=== PATIENT | female | born 1935 | race Hispanic/Latino ===

== ENCOUNTER 2021-12-06 11:53 | Inpatient (IN) | payer MEDICARE, OTHER ==
[~2021-12-06] VITALS: Ht 157.5 cm; Wt 57.2 kg
[2021-12-06] MEDS ORDERED: SODIUM CHLORIDE FLUSH 10 ML SYR INJ PRN ×2 (12:30→14:15)
[2021-12-06] MEDS ORDERED: SODIUM CHLORIDE 0.9% 500ML 500 ML IV ONE (12:30)
[2021-12-06 12:48] LABS: BASOPHILS # (AUTO) 0.1 (0.0-0.1); BASOPHILS % 0.8 % (0.0-1.0); EOSINOPHILS # (AUTO) 0.2 (0.0-0.4); EOSINOPHILS % 1.9 % (0.0-6.0); HEMATOCRIT 39.3 % (34.2-44.1); HEMOGLOBIN 12.1 g/dL (12.0-16.0); LYMPHOCYTES # (AUTO) 1.5 (1.0-3.2); LYMPHOCYTES % 19.5 % (18.0-39.1); MEAN CORPUSCULAR HEMOGLOBIN 26.8 pg (28-32); MEAN CORPUSCULAR HGB CONC 30.8 g/dL (31-35); MEAN CORPUSCULAR VOLUME 86.9 fL (81-99); MONOCYTES # (AUTO) 0.6 (0.2-0.8); MONOCYTES % 7.4 % (4.4-11.3); NEUTROPHILS # (AUTO) 5.4 (2.1-6.9); PLATELET COUNT 455 x10e3/uL (140-360); RED BLOOD COUNT 4.52 x10e6/uL (3.6-5.1); RED CELL DISTRIBUTION WIDTH 15.9 % (11.7-14.4)
[2021-12-06 13:06] LABS: CLARITY,URINE CLEAR (CLEAR); COLOR,URINE YELLOW (YELLOW); KETONES,URINE NEGATIVE (NEGATIVE); LEUKOCYTE ESTERASE ,URINE NEGATIVE (NEGATIVE); NITRITE,URINE NEGATIVE (NEGATIVE); PROTEIN,URINE DIPSTICK NEGATIVE (NEGATIVE)
[2021-12-06 13:09] LABS: ALBUMIN 2.3 g/dL (3.5-5.0); ALBUMIN/GLOBULIN RATIO 0.5 (0.8-2.0); ANION GAP 14.8 mmol/L (8-16); CALCIUM 8.6 mg/dL (8.4-10.2); CREATININE, SERUM 0.6 mg/dL (0.57-1.11); POTASSIUM 3.8 mmol/L (3.5-5.1)
[2021-12-06 13:16] LABS: BACTERIA,URINE RARE /HPF; EPITHELIAL CELLS,URINE FEW /LPF; RBC,URINE 0-5 /HPF (0-5); WBC,URINE (MAN) 0-5 /HPF (0-5)
[2021-12-06] MEDS ORDERED: ACETAMINOPHEN 325 MG TAB PO ONE (13:45)
[2021-12-06] MEDS ORDERED: DIGOXIN INJ 0.25 MG/ML 2 ML AMP IV ONE (13:45)
[2021-12-06] MEDS ORDERED: ONDANSETRON HCL INJ 2MG/ML 2ML 2 MG/ML VIAL IV PRN (14:15)
[2021-12-06] MEDS ORDERED: ASPIRIN 81 MG CHEW TAB PO ONE (14:15)
[2021-12-06] MEDS ORDERED: MIRTAZAPINE7.5 MG PO (15:47)
[2021-12-06] MEDS ORDERED: METOPROLOL TART25 MG PO (15:47)
[2021-12-06] MEDS ORDERED: LEVOTHYROXINE50 MCG PO (15:47)
[2021-12-06] MEDS ORDERED: LISINOPRIL5 MG PO (15:47)
[2021-12-06 16:40] LABS: CREATINE KINASE MB 0.8 ng/mL (0-5.0)
[2021-12-06] MEDS ORDERED: LORAZEPAM 0.5 MG TAB PO PRN (18:45)
[2021-12-06 21:00] VITALS: BP 135/90
[2021-12-06] MEDS ORDERED: DEXTROSE 50% SYRINGE 50 ML IV PRN (23:15)
[2021-12-06] MEDS ORDERED: DEXTROSE 5%/0.45% SOD CHL 1,000 ML IV ONE (23:15)
[2021-12-07] VITALS (9 sets, daily range): BP systolic 96–158; BP diastolic 50–98
[2021-12-07] MEDS ORDERED: DEXTROSE 5%/0.45% SOD CHL 1,000 ML IV ONE ×2 (03:57→21:07)
[2021-12-07 04:08] LABS: BASOPHILS # (AUTO) 0.1 (0.0-0.1); BASOPHILS % 0.7 % (0.0-1.0); EOSINOPHILS # (AUTO) 0.2 (0.0-0.4); EOSINOPHILS % 2.9 % (0.0-6.0); HEMATOCRIT 39.7 % (34.2-44.1); HEMOGLOBIN 12.4 g/dL (12.0-16.0); LYMPHOCYTES # (AUTO) 1.4 (1.0-3.2); LYMPHOCYTES % 17.3 % (18.0-39.1); MEAN CORPUSCULAR HEMOGLOBIN 27.3 pg (28-32); MEAN CORPUSCULAR HGB CONC 31.2 g/dL (31-35); MEAN CORPUSCULAR VOLUME 87.3 fL (81-99); MONOCYTES # (AUTO) 0.7 (0.2-0.8); MONOCYTES % 8.5 % (4.4-11.3); NEUTROPHILS # (AUTO) 5.8 (2.1-6.9); NEUTROPHILS % 70.1 % (38.7-80.0); PLATELET COUNT 350 x10e3/uL (140-360); RED BLOOD COUNT 4.55 x10e6/uL (3.6-5.1); RED CELL DISTRIBUTION WIDTH 16.3 % (11.7-14.4)
[2021-12-07 04:30] LABS: CREATINE KINASE MB 1.1 ng/mL (0-5.0)
[2021-12-07 04:45] LABS: ALBUMIN 2.3 g/dL (3.5-5.0); ALBUMIN/GLOBULIN RATIO 0.5 (0.8-2.0); ANION GAP 18.9 mmol/L (8-16); CALCIUM 8.6 mg/dL (8.4-10.2); CREATININE, SERUM 0.57 mg/dL (0.57-1.11)
[2021-12-07 04:47] LABS: POTASSIUM 4.9 mmol/L (3.5-5.1)
[2021-12-07 05:06] LABS: THYROID STIMULATING HORMONE 6.654 uIU/mL (0.350-4.940)
[2021-12-07] MEDS: INSULIN LISPRO 100 UNIT/1 ML 3ML VIAL SQ SCH ×4 (07:30→20:57)
[2021-12-07] MEDS ORDERED: LEVOTHYROXINE SODIUM 50 MCG TAB PO SCH (07:30)
[2021-12-07] MEDS: LISINOPRIL 2.5 MG TAB PO SCH (10:15)
[2021-12-07] MEDS: SENNOSIDES 8.6 MG TAB PO SCH (10:15)
[2021-12-07] MEDS: METOPROLOL TARTRATE 25 MG TAB PO SCH ×2 (10:15→17:45)
[2021-12-07] MEDS: DOCUSATE SODIUM 100 MG CAP PO SCH (10:15)
[2021-12-07] MEDS: MIRTAZAPINE 15 MG TAB PO SCH (10:15)
[2021-12-07 10:57] LABS: FREE T4 (FREE THYROXINE) 1.02 ng/dL (0.8-1.8)
[2021-12-07 16:51] LABS: CREATINE KINASE MB 0.8 ng/mL (0-5.0)
[2021-12-07] MEDS: ENOXAPARIN SOD INJ 40 MG/0.4 ML SYR SC SCH (17:30)
[2021-12-07] MEDS: MEGACE 400MG/ 10ML CUP PO SCH (17:38)
[2021-12-07] MEDS: ACETAMINOPHEN 325 MG TAB PO PRN (20:58)
[2021-12-08] VITALS (8 sets, daily range): BP systolic 91–155; BP diastolic 55–95
[2021-12-08] MEDS ORDERED: SODIUM CHLORIDE 0.9% 250ML 250 ML ONE (00:08)
[2021-12-08] MEDS: ACETAMINOPHEN 325 MG TAB PO PRN ×2 (06:18→12:11)
[2021-12-08] MEDS: LEVOTHYROXINE SODIUM 25 MCG TABLET PO SCH (06:18)
[2021-12-08 07:09] LABS: BASOPHILS % 0.5 % (0.0-1.0); EOSINOPHILS # (AUTO) 0.1 (0.0-0.4); EOSINOPHILS % 1.9 % (0.0-6.0); HEMATOCRIT 38.3 % (34.2-44.1); HEMOGLOBIN 11.6 g/dL (12.0-16.0); LYMPHOCYTES # (AUTO) 1.6 (1.0-3.2); LYMPHOCYTES % 21.4 % (18.0-39.1); MEAN CORPUSCULAR HGB CONC 30.3 g/dL (31-35); MEAN CORPUSCULAR VOLUME 89.1 fL (81-99); MONOCYTES # (AUTO) 0.8 (0.2-0.8); MONOCYTES % 11.3 % (4.4-11.3); NEUTROPHILS # (AUTO) 4.8 (2.1-6.9); NEUTROPHILS % 64.6 % (38.7-80.0); PLATELET COUNT 327 x10e3/uL (140-360); RED CELL DISTRIBUTION WIDTH 16.3 % (11.7-14.4)
[2021-12-08] MEDS ORDERED: SODIUM CHLORIDE 0.9% 250ML 250 ML IV ONE (07:30)
[2021-12-08] MEDS: INSULIN LISPRO 100 UNIT/1 ML 3ML VIAL SQ SCH ×4 (07:30→19:40)
[2021-12-08 08:38] LABS: ALBUMIN 2.1 g/dL (3.5-5.0); ALBUMIN/GLOBULIN RATIO 0.5 (0.8-2.0); ANION GAP 20.7 mmol/L (8-16); CALCIUM 8.2 mg/dL (8.4-10.2); CREATININE, SERUM 0.59 mg/dL (0.57-1.11); MAGNESIUM 1.8 MG/DL (1.3-2.1); POTASSIUM 4.7 mmol/L (3.5-5.1)
[2021-12-08] MEDS: LISINOPRIL 2.5 MG TAB PO SCH (09:00)
[2021-12-08] MEDS: DOCUSATE SODIUM 100 MG CAP PO SCH (09:00)
[2021-12-08] MEDS: MEGACE 400MG/ 10ML CUP PO SCH (09:00)
[2021-12-08] MEDS: MIRTAZAPINE 15 MG TAB PO SCH (09:00)
[2021-12-08] MEDS: SENNOSIDES 8.6 MG TAB PO SCH (09:00)
[2021-12-08] MEDS: METOPROLOL TARTRATE 50 MG TAB PO SCH ×2 (09:00→17:00)
[2021-12-08] MEDS: ASPIRIN 325 MG TAB PO SCH (09:00)
[2021-12-08] MEDS: ENOXAPARIN SOD INJ 40 MG/0.4 ML SYR SC SCH (17:00)
[2021-12-09] VITALS (7 sets, daily range): BP systolic 99–145; BP diastolic 57–88
[2021-12-09] MEDS: LEVOTHYROXINE SODIUM 25 MCG TABLET PO SCH (05:30)
[2021-12-09] MEDS: INSULIN LISPRO 100 UNIT/1 ML 3ML VIAL SQ SCH ×4 (07:30→20:10)
[2021-12-09 08:29] LABS: ALBUMIN/GLOBULIN RATIO 0.5 (0.8-2.0); ANION GAP 16.2 mmol/L (8-16); CALCIUM 8.2 mg/dL (8.4-10.2); CREATININE, SERUM 0.59 mg/dL (0.57-1.11); MAGNESIUM 1.8 MG/DL (1.3-2.1); POTASSIUM 4.2 mmol/L (3.5-5.1)
[2021-12-09] MEDS: MEGACE 400MG/ 10ML CUP PO SCH (08:52)
[2021-12-09] MEDS: ASPIRIN 325 MG TAB PO SCH (08:52)
[2021-12-09] MEDS: DOCUSATE SODIUM 100 MG CAP PO SCH (08:52)
[2021-12-09] MEDS: METOPROLOL TARTRATE 50 MG TAB PO SCH ×2 (08:52→17:00)
[2021-12-09] MEDS: LISINOPRIL 2.5 MG TAB PO SCH (08:52)
[2021-12-09] MEDS: SENNOSIDES 8.6 MG TAB PO SCH (08:53)
[2021-12-09] MEDS: MIRTAZAPINE 15 MG TAB PO SCH (08:53)
[2021-12-09] MEDS: ENOXAPARIN SOD INJ 40 MG/0.4 ML SYR SC SCH (17:00)
[2021-12-10] VITALS (7 sets, daily range): BP systolic 101–123; BP diastolic 59–82
[2021-12-10] MEDS: LEVOTHYROXINE SODIUM 25 MCG TABLET PO SCH (05:59)
[2021-12-10] MEDS: INSULIN LISPRO 100 UNIT/1 ML 3ML VIAL SQ SCH ×4 (07:30→20:01)
[2021-12-10] MEDS: ASPIRIN 325 MG TAB PO SCH (09:00)
[2021-12-10] MEDS: LISINOPRIL 2.5 MG TAB PO SCH (09:00)
[2021-12-10] MEDS: MEGACE 400MG/ 10ML CUP PO SCH (09:00)
[2021-12-10] MEDS: MIRTAZAPINE 15 MG TAB PO SCH (09:00)
[2021-12-10] MEDS: SENNOSIDES 8.6 MG TAB PO SCH (09:00)
[2021-12-10] MEDS: METOPROLOL TARTRATE 50 MG TAB PO SCH ×2 (09:00→17:00)
[2021-12-10] MEDS: DOCUSATE SODIUM 100 MG CAP PO SCH (09:00)
[2021-12-10] MEDS: ENOXAPARIN SOD INJ 40 MG/0.4 ML SYR SC SCH (17:00)
[2021-12-11] VITALS (7 sets, daily range): BP systolic 97–134; BP diastolic 47–70
[2021-12-11] MEDS: LEVOTHYROXINE SODIUM 25 MCG TABLET PO SCH (05:21)
[2021-12-11] MEDS: INSULIN LISPRO 100 UNIT/1 ML 3ML VIAL SQ SCH ×4 (07:30→21:00)
[2021-12-11] MEDS: LISINOPRIL 2.5 MG TAB PO SCH (09:00)
[2021-12-11] MEDS: ASPIRIN 325 MG TAB PO SCH (09:00)
[2021-12-11] MEDS: DOCUSATE SODIUM 100 MG CAP PO SCH (09:00)
[2021-12-11] MEDS: METOPROLOL TARTRATE 50 MG TAB PO SCH ×2 (09:00→16:03)
[2021-12-11] MEDS: MEGACE 400MG/ 10ML CUP PO SCH (09:00)
[2021-12-11] MEDS: SENNOSIDES 8.6 MG TAB PO SCH (09:52)
[2021-12-11] MEDS: MIRTAZAPINE 15 MG TAB PO SCH (09:52)
[2021-12-11] MEDS: ACETAMINOPHEN 325 MG TAB PO PRN (13:44)
[2021-12-11] MEDS: ENOXAPARIN SOD INJ 40 MG/0.4 ML SYR SC SCH (16:02)
== END 2021-12-12 00:09 | DRG 309 ==
LOC: ER 12:02 → ERHOLD 14:09 → MED/SURG2 21:10
PROVIDERS: ADMIT Internal Medicine; ATTEND Internal Medicine
DX: I48.91 Unspecified atrial fibrillation (principal); E87.1 Hypo-osmolality and hyponatremia; R62.7 Adult failure to thrive; F03.90 Unspecified dementia, unspecified severity, without behavioral disturbance, psychotic disturbance, mood disturbance, and anxiety; E11.9 Type 2 diabetes mellitus without complications; I10 Essential (primary) hypertension; E03.9 Hypothyroidism, unspecified; Z74.09 Other reduced mobility; R53.81 Other malaise; Z74.01 Bed confinement status; Z68.24 Body mass index [BMI] 24.0-24.9, adult; Z96.652 Presence of left artificial knee joint; Z20.822 Contact with and (suspected) exposure to COVID-19
CPT/HCPCS: 36415; 71045; 80048; 80053; 81001; 82550; 82553; 82948; 83036; 83735; 84134; 84439; 84443; 84479; 84480; 84484; 85025; 87086; 93005; 93306; 96372; 97139; J1160; J1650; J7040; J7050